=== PATIENT | female | born 1985 | race Caucasian/White ===

== ENCOUNTER 2017-05-17 20:41 | Emergency (ER) | payer SELFPAY ==
--- NOTE | ~2017-05-17 | ER ---
PATIENT'S NAME: [facility]Y [facility] AGE: 31 Y [address] ROOM: [place] [id number] LOCATION: ED ADMIT DATE: 05/17/2017 ER/Outpatient Report DISCHARGE DATE: 05/17/2017 FAMILY PHYSICIAN: Keenan Spence ATTENDING PHYSICIAN: Julius Jeffries Time of Arrival: 2106 hours. Time of Exam: 2115 hours. CHIEF COMPLAINT: Ovarian pain. HISTORY OF PRESENT ILLNESS: The patient states she has a history of polycystic ovarian syndrome and has had bilateral mid abdominal pain since Saturday. States she was out of her medications for a week and just started them back up 2 days ago. States she has been nauseated, has not had any vomiting. Has not had any pain with urination or increased frequency. Has not had any change in her bowel pattern. Has not noticed any blood. States the pain that she is having is typical to what she has when her cysts are inflamed. ALLERGIES: SHE HAS NO KNOWN ALLERGIES. CURRENT MEDICATIONS: On the chart and reviewed by me. PAST MEDICAL HISTORY: Polycystic ovary syndrome and hypertension. PAST SURGERIES: Negative. SOCIAL HISTORY: She denies use of tobacco or drugs. Drinks alcohol on a rare occasion. REVIEW OF SYSTEMS: Negative other than those mentioned in the HPI. PHYSICAL EXAMINATION: VITAL SIGNS: She weighed 152.7 kg. Blood pressure is 193/102, pulse of 105, respirations 18, temperature of 98.8, and O2 saturation is 97% on room air. GENERAL: She is awake, alert, and oriented x4. SKIN: [place], warm, and dry. RESPIRATIONS: Even and nonlabored. Lung sounds are clear throughout. PATIENT'S NAME: TOY [facility]ULT[facility] AGE: 31 Y [address] ROOM: [place] [id number] LOCATION: ED ADMIT DATE: 05/17/2017 ER/Outpatient Report DISCHARGE DATE: 05/17/2017 FAMILY PHYSICIAN: Keenan Spence ATTENDING PHYSICIAN: Julius Jeffries HEART: Regular rate and rhythm. ABDOMEN: Soft, nondistended. Bowel sounds are present. EMERGENCY DEPARTMENT COURSE: Saline lock was initiated. Fluids of normal saline were started at a wide- open rate. She was given Zofran 4 mg IV and morphine 2 mg IV. She was monitored. She states that she was feeling better, the pain has decreased, the nausea has improved. IMPRESSION: Abdominal pain. PLAN: Home, rest, fluids. Continue her current medications. Did discuss with her the importance of taking the medications to keep the symptoms under control. If her symptoms worsen, she should follow up with her primary provider in the next 2 to 3 days or return to the ER as needed. She verbalized understanding. ILYA FOSS APRN FOR MD DAVID MITCHELL/[place] /[id number] d: 05/18/17 0021 t: 05/21/17 1259, OUTPATIENT REPORT
== END 2017-05-17 22:50 | disposition disaster alternative care site (69) ==
LOC: GMED 20:41
DX: R10.9 Unspecified abdominal pain (principal); I10 Essential (primary) hypertension; E28.2 Polycystic ovarian syndrome; Z79.84 Long term (current) use of oral hypoglycemic drugs; Z79.899 Other long term (current) drug therapy
CPT/HCPCS: J2270; J2405; J7030